=== PATIENT | male | born 1965 | race Caucasian/White ===

== ENCOUNTER 2018-12-31 21:51 | Observation (INO) ==
[2018-12-31] MEDS ORDERED: ONDANSETRON 4 MG/2 ML VIAL IV ONE (22:06)
--- NOTE | 2018-12-31 22:10 | Emergency Department Note ---
Male Urogenital HPI - General Chief complaint: Flank Pain Stated complaint: left kidney pain Time Seen by Provider: 12/31/18 22:05 Source: patient, family Mode of arrival: wheelchair Limitations: no limitations - History of Present Illness HPI Narrative: This patient returns emergency room with his fourth visit for a kidney stone that he said for about a week. I saw him early Tuesday morning and he improved over 6 hours and went home and did fairly well until this evening when he started having severe pain again on the left side - Related Data Previous Rx's Medication Instructions Recorded Naproxen 500 mg PO BID #30 tab 12/24/18 Tamsulosin [Flomax] 0.8 mg PO HS #14 cap 12/24/18 oxyCODONE HCL [Oxycodone HCl] 5 mg PO TID #14 tab 12/24/18 Allergies Allergy/AdvReac Type Severity Reaction Status Date / Time Penicillins AdvReac Unknown Unknown Verified 12/30/18 03:02 Review of Systems All systems ED: reviewed and negative except as stated. Past Medical History - Past Medical History Medical history: Reports: kidney stones, other (nephrolithiasis) - Social History smoking status: Never smoker Physical Exam Limitations: no limitations General appearance: alert Head: atraumatic Eye: Present: normal appearance Abdominal: Present: soft. Absent: distention, tenderness Back: Present: CVA tenderness (L) Neurological: Present: alert Psychiatric: Present: normal affect Skin: Present: warm, dry Course Vital Signs Temperature 99.2 F H 12/31/18 21:53 Pulse Rate 100 H 12/31/18 21:53 Respiratory Rate 20 12/31/18 21:53 Blood Pressure 195/97 12/31/18 21:53 Pulse Oximetry (%) 100 12/31/18 21:53 Temperature 99.2 F H 12/31/18 21:53 Pulse Rate 100 H 12/31/18 21:53 Respiratory Rate 20 12/31/18 21:53 Blood Pressure 195/97 12/31/18 21:53 Pulse Oximetry (%) 100 12/31/18 21:53 Urogenital-Male - MDM Narrative Medical decision making narrative: I spoke with Dr. Basilio and we will just admit the patient tonight for pain control and Dr. Basilio will see him in the morning. Disposition Pt seen by [facility]/PA only: No Clinical Impression: Left nephrolithiasis Disposition: Xfer As Outpt/Obs ([facility]) Condition: Good Referrals: Braxton Dorsey PA-C [Primary Care Provider] - Time of Disposition: 22:12
[2018-12-31] MEDS ORDERED: 0.9 % SODIUM CHLORIDE 1,000 ML IV ONE (22:12)
[2018-12-31] MEDS ORDERED: HYDROmorphone 2 MG/ML VIAL IV SCH (22:15)
[2018-12-31] MEDS: 0.9 % SODIUM CHLORIDE 1,000 ML IV ONE ×2 (22:16→22:51)
[2019-01-01] MEDS: LACTATED RINGERS 1,000 ML IV SCH ×3 (00:48→08:58)
[2019-01-01] MEDS: HYDROmorphone 2 MG/ML VIAL IV PRN ×2 (01:34→04:54)
[2019-01-01] MEDS ORDERED: ceFAZolin 2 GM in DEXTROSE 5% IN WATER 50 ML IV SCH (07:30)
--- NOTE | 2019-01-01 07:56 | History and Physical Report ---
DATE OF ADMISSION: 12/31/2018 ADMITTING DIAGNOSIS: Left kidney stone. HISTORY OF PRESENT ILLNESS: The patient is a 53-year-old gentleman with a long history of stones. The first one was treated about 20 years ago. Recently, he had severe pain on the left side. It was felt that he was going to pass this like he has done before and was in the emergency room. A CT scan showed a 5 x 7 stone in the left UPJ. He was sent home on pain medication and continued to have pain on and off. Last night he was having severe pain and came into the emergency room. It was felt that he needed to be admitted for pain control and I was asked to evaluate him. PAST MEDICAL HISTORY: Significant for kidney stones. PAST SURGICAL HISTORY: None. ALLERGIES: PENICILLINS. SOCIAL HISTORY: Does not smoke and does not drink. REVIEW OF SYSTEMS: CARDIAC: Denies any chest pain. RESPIRATORY: No real wheezing, coughing, or asthma. PSYCHOLOGICAL: No depression or mood swings. GASTROINTESTINAL: No constipation, no diarrhea. The rest of a 12-point review of systems is negative. PHYSICAL EXAMINATION: GENERAL: This is a very pleasant gentleman in slight distress. VITAL SIGNS: As listed per nurse's notes. HEENT: Atraumatic, normocephalic. Extraocular movements are intact. Pupils equal, reactive to light and accommodation. No thyromegaly is noted. No mucosal lesions. NECK: Supple. Trachea is in the midline. HEART: Regular rate and rhythm. LUNGS: Clear to auscultation. ABDOMEN: Soft, nontender, positive left CVA tenderness which extends down to the groin. GENITOURINARY: Scrotum without lesion. No hydrocele, no varicocele. Testicles are down in normal position. No hernias are appreciated. Epididymides are without cysts or tenderness. Penis is circumcised without plaques. Meatus is at the end of his penis. No discharge. RECTAL: Deferred. EXTREMITIES: Without clubbing, cyanosis or edema. NEUROLOGIC: Cranial nerves II-XII intact. IMPRESSION: Patient with a left ureteropelvic junction obstruction with hydronephrosis. PLAN: I have talked about the options. He has tried to pass this for the last 2 to 3 weeks and it has not moved at all. Lithotripsy is not available, so we will take him to surgery for ureteroscopy and laser lithotripsy. I have gone over the procedure with him and complications including bleeding, pain, need for stent, not being able to retrieve the stone, perforation of the ureter, and he understands. Surgery will be scheduled this afternoon. AMANDA:divina Job ID: [id number] Doc ID: [id number] Yanick Basilio MD
[2019-01-01] MEDS: DEXTROSE 5%-LR W/20MEQ KCL 1,000 ML IV SCH ×2 (09:05→15:30)
[2019-01-01] MEDS ORDERED: KETAMINE 100 MG/ML ML IV ONE (12:05)
[2019-01-01] MEDS ORDERED: DEXAMETHASONE 10 MG/ML VIAL IV ONE (12:05)
[2019-01-01] MEDS ORDERED: ONDANSETRON 4 MG/2 ML VIAL IV ONE (12:05)
[2019-01-01] MEDS ORDERED: MIDAZOLAM 2 MG/2 ML VIAL IV ONE (12:05)
[2019-01-01] MEDS ORDERED: PROPOFOL 200 MG/20 ML VIAL IV ONE (12:05)
[2019-01-01] MEDS ORDERED: LIDOCAINE HCL/PF 100 MG/5 ML SYRINGE IV ONE (12:05)
[2019-01-01] MEDS ORDERED: GLYCOPYRROLATE 0.2 MG/ML VIAL IV ONE (12:05)
[2019-01-01] MEDS ORDERED: fentaNYL 100 MCG/2 ML VIAL IV ONE (12:05)
[2019-01-01] MEDS ORDERED: IOPAMIDOL 50 ML BOTTLE IJ ONE (12:45)
[2019-01-01] MEDS ORDERED: BENZOCAINE/MENTHOL 1 LOZENGE PO PRN (13:21)
[2019-01-01] MEDS ORDERED: ACETAMINOPHEN 1,000 MG/100 ML BOTTLE IV ONE (13:21)
[2019-01-01] MEDS ORDERED: IPRATROPIUM/ALBUTEROL 3 ML AMPUL.NEB NEB PRN (13:21)
[2019-01-01] MEDS ORDERED: ONDANSETRON 4 MG/2 ML VIAL IV PRN (13:21)
[2019-01-01] MEDS ORDERED: KETOROLAC 30 MG/ML VIAL IV PRN (13:21)
[2019-01-01] MEDS ORDERED: HYDROmorphone 2 MG/ML VIAL IV PRN (13:21)
[2019-01-01] MEDS ORDERED: METOPROLOL TARTRATE 5 MG/5 ML VIAL IV PRN (13:21)
[2019-01-01] MEDS ORDERED: PROMETHAZINE 25 MG/ML VIAL IM PRN (13:21)
[2019-01-01] MEDS ORDERED: MEPERIDINE 50 MG/ML INJECTION IM PRN (13:21)
[2019-01-01] MEDS ORDERED: MEPERIDINE 25 MG/ML SYRINGE IV PRN (13:21)
[2019-01-01] MEDS ORDERED: fentaNYL 100 MCG/2 ML VIAL IV PRN (13:21)
[2019-01-01] MEDS ORDERED: oxyCODONE/APAP 5/325MG TABLET PO PRN (13:26)
--- NOTE | 2019-01-01 13:29 | Brief Operative Note ---
Date of procedure: 01/01/19 Pre-op diagnosis: left renal stone Post-op diagnosis: same Procedure: ureteroscopy, laser litho, stent Grafts/Implants: Yes (stent) Anesthesia: GLMA Findings: see note Complications: none Surgeon: Yanick Basilio Specimens Removed/Pathology: none sent Condition: stable Disposition: PACU
[2019-01-01] MEDS ORDERED: LACTATED RINGERS 1,000 ML IV SCH (13:30)
--- NOTE | 2019-01-01 13:30 | Discharge Plan ---
Discharge Plan - Patient/Caregiver Discharge Instructions Activity: increase activity as tolerated Diet: Regular Diet Additional Instructions: remove stent on - Follow up Plan Follow up with: Braxton Dorsey PA-C [Primary Care Provider] - Disposition: Home, Self-Care Prognosis: Good Rehab Potential: Good Overall status at discharge: patient is back to baseline
[2019-01-01] MEDS ORDERED: 0.9 % SODIUM CHLORIDE 10 ML SYRINGE IV SCH (14:00)
--- NOTE | 2019-01-01 14:15 | Operative Note ---
DATE OF OPERATION: 01/01/2019 PREOPERATIVE DIAGNOSIS: Left ureteral obstruction. POSTOPERATIVE DIAGNOSIS: Left ureteral obstruction. PROCEDURE: Cystoscopy, retrograde pyelogram, ureteroscopy, laser lithotripsy and stent placement. SURGEON: Yanick Basilio MD INDICATION: The patient is a 53-year-old gentleman who has had approximately 3 weeks of stone pain on the left side. CT scan was repeated twice which did show a UPJ obstruction with a 7 mm stone density. He presents now for treatment. PROCEDURE IN DETAIL: The patient was identified and consent was signed. He was given general anesthesia, placed in lithotomy position, prepped and draped in a standard fashion. Cystourethroscopy showed normal-appearing urethra. Orifices were in their normal position. Prostate had minimal hypertrophy. We were then able to place a wire up into the kidney and this showed a good curl. The access sheath was then passed and using the flexible ureteroscope, we were able to enter the renal pelvis. We inspected multiple calices, but no stones were seen. There was one carine which did not clear the dye, but eventually we were able to get in there and no stone was seen. Finally, there was a roughened area on the left mid kidney, which appeared to be calcified. We were then able to use a laser and break this up. When removed any particles. It was consistent with tissue and blood. We again inspected all the calices and could not see any stone. At this time, it was felt that this may be a papilla that had sloughed and was causing him his pain. We then removed the access sheath, placed a wire up into the kidney and placed a 6 x 28 stent. This showed a good curl in the kidney and the bladder and his bladder was drained. The string was left attached and he will remove this as an outpatient. The patient was then awoken and taken to the recovery room in stable condition. He tolerated the procedure well. AMANDA:divina Job ID: [id number] Doc ID: [id number] Yanick Basilio MD
[2019-01-01] MEDS ORDERED: oxyCODONE HCL 5 MG TABLET PO SCH (15:00)
--- NOTE | 2019-01-01 16:16 | XRay Report ---
CLINICAL INFORMATION: left ureteroscopy. 7 mm stone in the left UPJ COMPARISON: Abdomen pelvic CT 12/29/2018. FINDINGS: Two digital films are submitted from the OR showing catheter in the left renal pelvis with opacification demonstrating moderate left hydronephrosis. On these two images stone may be vaguely apparent. Presumably, it was treated with laser ablation or otherwise removed. IMPRESSION: Left hydronephrosis due to 7 mm stone in left UPJ. Presumably, this was treated with ablation and/or catheter removal Interpreted and Authenticated by: Mathew Turpin 01/01/19
[2019-01-01] MEDS ORDERED: TAMSULOSIN 0.4 MG CAPSULE PO SCH (21:00)
== END 2019-01-01 18:40 | disposition home or self-care (01) ==
LOC: MEDSUR 21:51 → ED 21:51 → MEDSUR 22:51